=== PATIENT | male | born 1970 | race Asian ===

== ENCOUNTER 2018-11-07 01:24 | Emergency (ER) | payer OTHER ==
[~2018-11-07] VITALS: Ht 175.3 cm; Wt 78.5 kg
[~2018-11-07 01:24] MED LIST: ACET325T33 PO; IBUP-1982 PO
[2018-11-07 01:26] VITALS: Ht 175.3 cm; Wt 78.5 kg
--- NOTE | 2018-11-07 01:43 | ERD ---
ER Documentation Chief Complaint Chief Complaint CP HPI The patient is a 48-year-old male, presenting to the ER because of intermittent left-sided chest pain, began around 12 AM, denies any chest pain now, denies fever, chills, neck pain, chest pain with vomiting/radiation/exertion/diaphoresis, dyspnea, complains of mild epigastric abdominal pain, denies lower abdominal pain, complains of vomiting of mostly mucus, denies diarrhea, constipation. He smokes half a pack a day, denies drinking, denies illicit drug Past medical history/surgical history: None ROS All systems reviewed and are negative except as per history of present illness. Medications Home Meds Active Scripts Acetaminophen* (Tylenol*) 325 Mg Tablet, 2 TAB PO Q6 PRN for PAIN AND OR ELEVATED TEMP, #20 TAB Prov:EMELY FUENTES MD 11/07/18 Reported Medications Ibuprofen* (Ibuprofen*) 200 Mg Capsule, 200 MG PO Q6, CAP 11/07/18 Allergies Allergies: Coded Allergies: No Known Allergy (Unverified , 11/07/18) Physical Exam Vitals Vital Signs Date Temp Pulse Resp B/P (MAP) Pulse Ox O2 O2 Flow FiO2 Time Delivery Rate 11/07/18 97.5 76 18 124/95 97 Room Air 05:12 (105) 11/07/18 96 21 139/99 98 Room Air 05:12 (112) 11/07/18 94 18 136/102 97 Room Air 04:05 (113) 11/07/18 97.8 107 22 137/96 99 01:26 (110) Physical Exam Const: No acute distress. Head: Atraumatic. Eyes: Normal Conjunctiva. ENT: Normal External Ears, Nose and Mouth. Neck: Full range of motion. No meningismus. Resp: Clear to auscultation bilaterally. Cardio: Regular rate and rhythm. Left chest wall tenderness on palpation, no crepitus Abd: Soft, non distended, normal bowel sounds, non tender. Skin: No petechiae or rashes. Back: No midline or flank tenderness. Ext: No cyanosis, or edema. Neur: Awake and alert. No focal deficit Psych: Normal Mood and Affect. Result Diagram: 11/07/18 0155 11/07/18 0155 Results 24 hrs Laboratory Tests Test 11/07/18 01:55 White Blood Count 8.1 10^3/ul Red Blood Count 5.88 10^6/ul Hemoglobin 16.9 g/dl Hematocrit 52.6 % Mean Corpuscular Volume 89.5 fl Mean Corpuscular Hemoglobin 28.7 pg Mean Corpuscular Hemoglobin Concent 32.1 g/dl Red Cell Distribution Width 12.9 % Platelet Count 310 10^3/UL Mean Platelet Volume 10.0 fl Immature Granulocytes % 0.200 % Neutrophils % 69.1 % Lymphocytes % 19.8 % Monocytes % 8.7 % Eosinophils % 1.5 % Basophils % 0.7 % Nucleated Red Blood Cells % 0.0 /100WBC Immature Granulocytes # 0.020 10^3/ul Neutrophils # 5.6 10^3/ul Lymphocytes # 1.6 10^3/ul Monocytes # 0.7 10^3/ul Eosinophils # 0.1 10^3/ul Basophils # 0.1 10^3/ul Nucleated Red Blood Cells # 0.0 10^3/ul Sodium Level 144 mmol/L Potassium Level 4.4 mmol/L Chloride Level 101 mmol/L Carbon Dioxide Level 33 mmol/L Anion Gap 10 Blood Urea Nitrogen 16 mg/dl Creatinine 1.57 mg/dl Est Glomerular Filtrat Rate mL/min 48 mL/min Glucose Level 140 mg/dl Calcium Level 10.4 mg/dl Total Bilirubin 0.6 mg/dl Direct Bilirubin 0.00 mg/dl Indirect Bilirubin 0.6 mg/dl Aspartate Amino Transf (AST/SGOT) 22 IU/L Alanine Aminotransferase (ALT/SGPT) 26 IU/L Alkaline Phosphatase 48 IU/L Troponin I < 0.012 ng/ml Total Protein 8.0 g/dl Albumin 4.7 g/dl Globulin 3.30 g/dl Albumin/Globulin Ratio 1.42 Lipase 67 U/L Current Medications Medications Dose Sig/Bobbi Start Time Status Last (Trade) Ordered Route PRN Stop Time Admin Dose Reason Admin Ketorolac 30 mg ONCE STAT 11/07/18 DC 11/07/18 Tromethamine IV 02:01 02:05 (Toradol) 11/07/18 02:03 Procedures/MDM [id number] [place], [place] [address] Radiology Main Line: [phone] DIAGNOSTIC IMAGING REPORT Patient: DES LAM : 1970 Age: 48 Sex: M MR #: [id number] [facility] #: [id number] DOS: 11/07/18 0201 Ordering MD: EMELY FUENTES MD Location: E/R Room/Bed: PROCEDURE: XR Chest. CLINICAL INDICATION: Chest pain. TECHNIQUE: Single frontal view of the chest. COMPARISON: None. FINDINGS: The cardiomediastinal silhouette is within normal limits. The lungs are clear. No signs of pleural fluid or pneumothorax are seen. The osseous structures and soft tissues are unremarkable. IMPRESSION: No evidence for active cardiopulmonary disease. RPTAT: [facility] Physician Wale Date Time Electronically viewed and signed by Physician Wale on 11/07/2018 03:01 RS/ CC: EMELY FUENTES MD [id number] EKG: At 1:30 AM read by emergency physician Rate/Rhythm: Sinus tachycardia 101 beats/min QRS, ST, T-waves: No ST elevation, no T inversion, RWA Impression: Abnormal EKG EK:53 AM read by emergency physician Rate/Rhythm: Normal Sinus Rhythm 96 beats/min QRS, ST, T-waves: No ST elevation, no T inversion, low voltage extremity lead Impression: Abnormal EKG MEDICAL MAKING DECISION: The patient is a 48-year-old male, presenting with more than 12-hour of chest pain intermittently with negative troponin, most likely musculoskeletal, treated with Toradol 30 mg IV for pain with good response, is stable for outpatient follow-up The differential diagnoses considered include but are not limited to acute coronary syndrome, acute myocardial infarction, pericarditis, pulmonary embolism, aortic dissection, pneumonia, pleural effusion, pneumothorax, GERD, chest wall pain. Departure Diagnosis: Primary Impression: Chest pain Additional Impression: Renal insufficiency Condition: Good Comments The patient's blood pressure was elevated (>120/80) but appears stable without evidence of hypertension emergency or urgency. The patient was counseled about the risks of hypertension and urged to pursue outpatient monitoring and therapy within a week with their primary care physician. I discussed the findings with the patient. I advised the patient to follow-up with the primary physician in about 1-2 days, sooner if needed and return if any concern. Disclaimer: Inadvertent spelling and grammatical errors are likely due to EHR/dictation software use and do not reflect on the overall quality of patient care. Also, please note that the electronic time recorded on this note does not necessarily reflect the actual time of the patient encounter. EMELY FUENTES MD Nov 07, 2018 01:43
[2018-11-07] MEDS ORDERED: KETOROLAC 30 MG INJ IV STA (02:01)
[2018-11-07 05:12] VITALS: BP 124/95; PULSE 76; RESP 18
== END 2018-11-07 05:13 | disposition home or self-care (01) ==
LOC: E/R 01:24
DX: R07.89 Other chest pain (principal); F17.210 Nicotine dependence, cigarettes, uncomplicated; N28.9 Disorder of kidney and ureter, unspecified
CPT/HCPCS: 36415; 71045; 80053; 83690; 84484; 85025; 93005; 96374; J1885; Z7502